=== PATIENT | male | born 1980 | race Caucasian/White ===

== ENCOUNTER 2019-06-18 04:38 | Emergency (ER) | payer SELFPAY ==
[2019-06-18] VITALS (10 sets, daily range): BP systolic 106–136; BP diastolic 61–81; PULSE 74–86; RESP 14–97; TEMP 36.8–37; O2SAT 97–99
--- NOTE | ~2019-06-18 | XR_ITS ---
XR chest 2V DATE: 06/18/2019 05:02 INDICATION: Left-sided chest pain TECHNIQUE: PA and lateral views COMPARISON: None FINDINGS: Status post lower anterior cervical spine surgical fusion. Normal heart size. No hilar or mediastinal enlargement. No pulmonary infiltrate or consolidation, ple ural effusion or pulmonary vascular congestion or pneumothorax. IMPRESSION: No active cardiopulmonary disease Reviewed, dictated and finalized at location A.
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
--- NOTE | 2019-06-18 04:46 | ECG_ITS ---
Measurements Intervals [place] Rate: 80 P: 57 NM: 160 QRS: 58 QRSD: 96 T: 52 QT: 335 QTc: 389 Interpretive Statements SINUS RHYTHM BASELINE ARTIFACT- I, II, III, AVR, AVL, AVF, V6 NORMAL ECG Electronically Signed On 06-18-2019 7:05:49 CDT by Nicholas Pennington D.O.
[2019-06-18 04:59] LABS: Basophils Absolute Auto 0.1 K/mm3 (0.0-0.1); Basophils Percent Auto 0.5 % (0.2-1.2); Eosinophils Absolute Auto 0.2 K/mm3 (0-0.3); Eosinophils Percent Auto 1.3 % (0-4.4); Hematocrit 47.4 % (42.0-52.0); Hemoglobin 15.7 g/dL (14.0-18.0); Immature Granulocyte Absolute 0.07 K/mm3 (0.00-0.031); Immature Granulocyte Percent A 0.5 % (0-0.5); Lymphocytes Absolute Auto 1.82 K/mm3 (0.9-3.2); Mean Corpuscular HGB Conc 33.1 g/dl (32-36); Mean Corpuscular Hemoglobin 31.2 pg (26-34); Mean Corpuscular Volume 94.2 fl (80-100); Mean Platelet Volume 9.2 fl (7.4-10.4); Monocytes Absolute Auto 1.5 K/mm3 (0.1-0.6); Neutrophils Absolute Auto 11.5 K/mm3 (1.3-6.7); Neutrophils Percent Auto 75.7 % (45.5-73.1); Platelet Count Result 292 k/mm3 (150-375); Red Blood Count 5.03 M/mm3 (4.6-6.20); Red Cell Distribution Width 13.1 % (11.5-14.5); White Blood Count 15.2 K/mm3 (4.5-10.0)
--- NOTE | 2019-06-18 04:59 | ECG_ITS ---
Measurements Intervals [place] Rate: 77 P: 68 [place]: 171 QRS: 64 QRSD: 94 T: 53 QT: 349 QTc: 396 Interpretive Statements SINUS RHYTHM BASELINE ARTIFACT- I, III NORMAL ECG Electronically Signed On 06-18-2019 7:07:01 CDT by Nicholas Pennington D.O.
[2019-06-18] MEDS: ASPIRIN 81 MG CHEWABLE TABLET 324 MG PO (05:06)
[2019-06-18 05:10] LABS: Blood Urea Nitrogen 20 mg/dL (9-20); Calcium 9.2 mg/dL (8.4-10.2); Carbon Dioxide 31 mmol/L (22-30); Chloride 103 mmol/L (98-107); Estimated CRCL calculation 77 ml/min; Estimated Glomerular Filt Rate > 60; Glucose 108 mg/dL (75-110); Potassium 4.3 mmol/L (3.4-5.0); Sodium 138 mmol/L (137-145)
[2019-06-18 05:11] LABS: INR 0.9; Prothrombin Time 11.4 Seconds (11.1-14.7)
[2019-06-18] MEDS: NITROGLYCERIN SL 0.4 MG TABLET SUBLINGUAL (05:17)
[2019-06-18] MEDS: ONDANSETRON INJ 4 MG/2 ML VIAL IV PUSH (05:17)
[2019-06-18 05:22] LABS: Troponin I < 0.012 ng/mL (0.000-0.034)
--- NOTE | 2019-06-18 05:23 | PC.NURSE ---
PT STATES NO CHANGE IN CP AT THIS TIME (0523) 6 MINUTES AFTER 1ST NTG ADMINISTRATION. PT GIVEN 2ND DOSE OF NTG AT THIS TIME.
--- NOTE | 2019-06-18 05:33 | PC.NURSE ---
AT THIS TIME (0533) PT RATES HIS CP A 1-2; SLIGHTLY IMPROVED FROM TIME OF 2ND NTG ADMINISTRATION. 3RD DOSE OF NTG ADMINISTERED AT THIS TIME.
[2019-06-18 05:57] LABS: Potassium 4.3 mmol/L (3.4-5.0)
[2019-06-18 06:00] LABS: Alanine Aminotransferase 24 U/L (4-50); Albumin Level 4.3 g/dL (3.5-5.1); Alkaline Phosphatase 57 U/L (38-126); Aspartate Amino Transferase 31 U/L (17-59); Bilirubin,Total 0.2 mg/dL (0.2-1.3); Blood Urea Nitrogen 21 mg/dL (9-20); Carbon Dioxide 30 mmol/L (22-30); Chloride 102 mmol/L (98-107); Estimated CRCL calculation 77 ml/min; Estimated Glomerular Filt Rate > 60; Glucose 106 mg/dL (75-110); Lipase 209 U/L (23-300); Sodium 139 mmol/L (137-145)
[2019-06-18] MEDS: KETOROLAC 15 MG/ML VIAL (*BKC) IV PUSH (06:00)
[2019-06-18 06:06] LABS: NT Pro B Type Natriuretic Pept 26 PG/ML (5-100)
[2019-06-18] MEDS: PANTOPRAZOLE SODIUM IV 40 MG VIAL IV PUSH (07:45)
[2019-06-18 08:11] LABS: Troponin I < 0.012 ng/mL (0.000-0.034)
== END 2019-06-18 08:48 | disposition home or self-care (01) ==
PROVIDERS: Emergency Medicine; Emergency Provider General Practice
DX: R07.89 Other chest pain (principal); D72.829 Elevated white blood cell count, unspecified; Z98.1 Arthrodesis status; F17.290 Nicotine dependence, other tobacco product, uncomplicated
CPT/HCPCS: 36415; 71046; 80048; 80053; 83690; 83880; 84484; 85025; 85610; 85730; 93005; 96374; 96375; 99284; A9270; C9113; J1885; J2405